=== PATIENT | female | born 1965 | race Caucasian/White ===

== ENCOUNTER 2017-01-31 19:34 | Emergency (ER) | payer BC ==
[2017-01-31 20:02] VITALS: BP 123/73
[2017-01-31] MEDS ORDERED: Azithromycin TAB* 250 MG PO ONE (20:12)
[2017-01-31] MEDS ORDERED: Benzonatate CAP* 100 MG PO ONE (20:12)
--- NOTE | 2017-01-31 20:57 | UC ---
Throat Pain/Nasal Howard HPI - HPI Summary HPI Summary: FIVE DAYS FO CONGESTION, LAST NIGHT HIGH PITCHED COUGH, SHORTNESS OF BREATH. NO FEVER. - History of Current Complaint Chief Complaint: UCRespiratory Stated Complaint: COUGH Time Seen by Provider: 01/31/17 19:51 Hx Obtained From: Patient Hx Last Menstrual Period: 11 yrs Onset/Duration: Gradual Onset, Lasting Weeks, Still Present Severity: Moderate Pain Intensity: 0 Pain Scale Used: 0-10 Numeric Cough: Productive Associated Signs & Symptoms: Positive: Sinus Discomfort, Nasal Discharge - Epiglottits Risk Factors Epiglottis Risk Factors: Negative - Allergies/Home Medications Allergies/Adverse Reactions: Allergies Allergy/AdvReac Type Severity Reaction Status Date / Time Clindamycin Allergy Rash Verified 01/31/17 19:52 Home Medications: Home Medications buPROPion TAB* [Wellbutrin TAB*] 100 mg PO DAILY 01/31/17 [History Confirmed ] PMH/Surg Hx/FS Hx/Imm Hx Previously Healthy: Yes - Surgical History Surgical History: Yes Surgery Procedure, Year, and Place: c sect x 3 - Family History Known Family History: Positive: Cardiac Disease, Diabetes, Other - BLADDER CANCER Negative: Respiratory Disease - Social History Occupation: Employed Full-time Lives: With Family Alcohol Use: Occasionally Substance Use Type: None Smoking Status (MU): Former Smoker Type: Cigarettes Have You Smoked in the Last Year: Yes When Did the Patient Quit Smoking/Using Tobacco: 6 MONTHS AGO Review of Systems Constitutional: Negative Skin: Negative Eyes: Negative ENT: Ear Ache, Nasal Discharge, Sinus Congestion, Sinus Pain/Tenderness Respiratory: Cough Cardiovascular: Negative Gastrointestinal: Negative Genitourinary: Negative Motor: Negative Neurovascular: Negative Musculoskeletal: Negative Neurological: Negative Psychological: Negative All Other Systems Reviewed And Are Negative: Yes Physical Exam Triage Information Reviewed: Yes Appearance: Well-Appearing, No Pain Distress, Well-Nourished Vital Signs: Initial Vital Signs Temp 98.1 F 01/31/17 19:54 Pulse 97 01/31/17 19:54 Resp 28 01/31/17 19:54 BP 123/73 01/31/17 19:54 Pulse Ox 100 01/31/17 19:54 Vital Signs Reviewed: Yes Eye Exam: Normal ENT: Positive: Pharynx normal, Nasal congestion, TM bulging, TM dull Dental Exam: Normal Neck exam: Normal Neck: Positive: Supple, Nontender, No Lymphadenopathy Respiratory Exam: Other - COUGH Respiratory: Positive: Chest non-tender, Lungs clear, Normal breath sounds, No respiratory distress, No accessory muscle use Cardiovascular Exam: Normal Cardiovascular: Positive: RRR, No Murmur, Pulses Normal Abdominal Exam: Normal Musculoskeletal Exam: Normal Musculoskeletal: Positive: Strength Intact Neurological Exam: Normal Psychological Exam: Normal Skin Exam: Normal Throat Pain/Nasal Course/Dx - Differential Dx/Diagnosis Differential Diagnosis/HQI/PQRI: Pharyngitis, Tonsillitis, URI Provider Diagnoses: SINUSITIS; BRONCHITIS Discharge - Discharge Plan Condition: Stable Disposition: HOME Prescriptions: Azithromycin TAB* [Zithromax TAB (Z-KI) 250 mg #6 tabs] 250 mg PO DAILY #4 tab Benzonatate CAP* [Tessalon 100 MG CAP*] 100 mg PO TID PRN #15 cap PRN Reason: Cough Patient Education Materials: Sinusitis (ED), Upper Respiratory Infection (ED) Referrals: Karen STEVENS,Pelon Bishop [Primary Care Provider] -
== END 2017-01-31 20:28 | disposition home or self-care (01) ==
LOC: UCCORT 19:34
DX: J32.9 Chronic sinusitis, unspecified (principal); J40 Bronchitis, not specified as acute or chronic; Z87.891 Personal history of nicotine dependence
CPT/HCPCS: 99212; A9270-GY; G0463

== ENCOUNTER 2017-08-06 18:26 | Emergency (ER) | payer BC ==
[2017-08-06 20:39] VITALS: BP 134/72
--- NOTE | 2017-08-06 20:57 | ED ---
Respiratory - HPI Summary HPI Summary: 52 yr old with myalgias, cough, chills, nasal congestion. Onset yesterday. 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 Her daughter has symptoms as well a couple of days before. No other complaints. - History of Current Complaint Chief Complaint: UCGeneralIllness Stated Complaint: FLU SYMPTOMS Time Seen by Provider: 08/06/17 20:44 Pain Intensity: 0 - Allergy/Home Medications Allergies/Adverse Reactions: Allergies Allergy/AdvReac Type Severity Reaction Status Date / Time Clindamycin Allergy Rash Verified 08/06/17 20:39 PMH/Surg Hx/FS Hx/Imm Hx - Surgical History Surgery Procedure, Year, and Place: c sect x 3 Infectious Disease History: No Infectious Disease History: Denies: Traveled Outside the [place] in Last 30 Days - Family History Known Family History: Positive: Cardiac Disease, Diabetes, Other - BLADDER CANCER Negative: Respiratory Disease - Social History Occupation: Employed Full-time Lives: With Family Alcohol Use: Rare Substance Use Type: Reports: None Smoking Status (MU): Former Smoker Type: Cigarettes Have You Smoked in the Last Year: Yes Review of Systems Positive: Chills, Fatigue Positive: Sore Throat, Nasal Discharge Positive: Cough All Other Systems Reviewed And Are Negative: Yes Physical Exam Triage Information Reviewed: Yes Vital Signs On Initial Exam: Initial Vitals Temp Pulse Resp BP Pulse Ox 98.6 F 113 24 134/72 100 08/06/17 20:35 08/06/17 20:35 08/06/17 20:35 08/06/17 20:35 08/06/17 20:35 Vital Signs Reviewed: Yes Appearance: Positive: Well-Appearing, No Pain Distress Skin: Positive: Warm, Skin Color Reflects Adequate Perfusion Head/Face: Positive: Normal Head/Face Inspection Eyes: Positive: EOMI ENT: Positive: Pharynx normal, Nasal congestion, Nasal drainage, TMs normal Neck: Positive: Nontender Respiratory/Lung Sounds: Positive: Clear to Auscultation, Breath Sounds Present Cardiovascular: Positive: RRR. Negative: Murmur Abdomen Description: Positive: Nontender Musculoskeletal: Positive: Strength/ROM Intact Neurological: Positive: Sensory/Motor Intact, Alert, Oriented to Person Place, Time, CN Intact II-III Psychiatric: Positive: Normal AVPU Assessment: Alert - Gayle Coma Scale Best Eye Response: 4 - Spontaneous Best Motor Response: 6 - Obeys Commands Best Verbal Response: 5 - Oriented Coma Scale Total: 15 Diagnostics - Vital Signs Vital Signs Temp Pulse Resp BP Pulse Ox 08/06/17 20:35 98.6 F 113 24 134/72 100 - Laboratory Lab Statement: Any lab studies that have been ordered have been reviewed, and results considered in the medical decision making process. Disposition - Course Course Of Treatment: 52 yr old with influenza symptoms. DC home on tamiflu - Diagnoses Provider Diagnoses: Influenza Discharge - Discharge Plan Condition: Good Disposition: HOME Prescriptions: Oseltamivir CAP* [Tamiflu CAP*] 75 mg PO BID #10 cap Patient Education Materials: Influenza in Children (ED) Forms: *School Release Referrals: Karen STEVENS,Pelon Bishop [Primary Care Provider] - 2 Days
== END 2017-08-06 21:01 | disposition home or self-care (01) ==
LOC: UCCORT 18:26
DX: J11.1 Influenza due to unidentified influenza virus with other respiratory manifestations (principal); Z88.1 Allergy status to other antibiotic agents; Z87.891 Personal history of nicotine dependence
CPT/HCPCS: 99212; G0463

== ENCOUNTER 2019-01-11 16:43 | Emergency (ER) | payer BC ==
--- OUTSIDE RECORDS SUMMARY | 2019-01-11 17:13 | XMS REPORT | Continuity of Care Document ---
:1965 External Reference #:[id number] Author Name Ayana Pascual PA Address [address] 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 Pelon Jones MD Primary Care Physician Unavailable Payers Date Identification Numbers Payment Provider Subscriber Policy Number: [id number] Enmanuel Jackson PayID: [id number] [address] [address] [place] [address] Problems Active Problems Provider Date Closed fracture of base of thumb Ayana Pascual PA Onset: 01/01/2019 Sprain of metacarpophalangeal joint Ayana Pascual PA Onset: 01/01/2019 Family History Date Family Member(s) Observation Comments Father Diabetes Father Heart Disease Social History Type Date Description Comments Sex Unknown Lives With Daughter 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 Working Hand Dominance Right-handed Tobacco Use Start: Unknown Current Cigarette Smoker 1 Pack Daily ETOH Use Rarely consumes alcohol Recreational Drug Use Denies Drug Use Tobacco Use Start: Unknown Heavy tobacco smoker (more than 10 cigarettes/day) Smoking Status Reviewed: 12/31/18 Heavy tobacco smoker (more than 10 cigarettes/day) Allergies, Adverse Reactions, Alerts Description No Known Drug Allergies Medications Description No Active Medications Vital Signs Date Vital Result Comment 01/01/2019 9:40am BP Systolic 130 mmHg BP Diastolic 84 mmHg Body Temperature 98.0 F Heart Rate 97 /min Height 61.5 inches 5'1.50" Weight 196.00 lb BMI (Body Mass Index) 36.4 kg/m2 BSA (Body Surface Area) 1.88 m2 [place] body weight in kilograms 49 kg O2 % BldC Oximetry 97 % Results Test Date Facility Test Result H/L Range Note Culture Routine W/ 09/09/2013 [facility] Gram Stain See Note 1 Gram Stain [address] [place] [address] [phone] Aerobic Culture See Note 2 1 GRAM STAIN ! FEW WHITE BLOOD CELLS ! VERY FEW GRAM POSITIVE COCCI 2 NO GROWTH: FINAL REPORT Procedures Date Code Description Status 01/01/2019 66230 Radiology, Finger(S), Two Views Completed 01/01/2019 87115 Fracture-closed finger or thumb Completed Encounters Type Date Location Provider Dx Diagnosis Office Visit 01/01/2019 [facility] Ayana Pascual, M25.542 Pain in joints of 9:30a PA left hand S63.642A Sprain of metacarpophalangeal joint of left thumb, init S62.512A Disp fx of proximal phalanx of left thumb, init for clos fx Office Visit 09/06/2013 10:34a Rony Perez, 682.6 Cellulitis & [facility] M.D. Abscess Leg Center Except Foot 311 Depressive Disorder Not Elsewhere Spec Plan of Treatment Future Appointment(s):01/22/2019 8:30 am - Ayana Pascual PA at [facility]/01/2019 - Ayana Pascual, PAM25.542 Pain in joints of left handS63.642A Sprain of metacarpophalangeal joint of left thumb, initial encounterComments:I have explained the nature of this injury and that with the placement of this fracture most likely she has partially torn the ulnar collateral ligament as well. I have recommended casting as I think it is going to give her the most support and she will be the most compliant with it. I recommended atotal of 6 weeks of a thumb spica cast. I do not recommend a removable brace as I do not think it will give her enough stability or she will be compliant. She will return to the office for recheck and change of the cast in 3 weeks.S62.512A Displaced fracture of proximal phalanx of left thumb, initial encounter for closed fractureAllNew Medication:No Active Medications -
[2019-01-11 17:18] VITALS: BP 117/69
--- NOTE | 2019-01-11 17:34 | UC ---
Respiratory Complaint HPI - HPI Summary HPI Summary: Deep cough x3 days that came on suddenly. Pt feels it is deep and occasional wheezing. Was rx'd an inhaler a few months ago, not using. Feels feverish. dec.r appetite. worse at night. smoker:former, quit 1 wk ago. sick contacts:none up to date with vaccines:up to date - History of Current Complaint Chief Complaint: UCGeneralIllness Stated Complaint: COUGH Time Seen by Provider: 01/11/19 17:15 Hx Obtained From: Patient Hx Last Menstrual Period: 11 yrs Onset/Duration: Sudden Onset Pain Intensity: 0 Pain Scale Used: 0-10 Numeric Aggravating Factors: Deep Breaths, Recumbent Position Alleviating Factors: Nothing Associated Signs And Symptoms: Positive: Fever, URI, Nasal Congestion. Negative : Dyspnea, Chills, Wheezing, Dizziness, Calf Pain, Calf Swelling - Allergies/Home Medications Allergies/Adverse Reactions: Allergies Allergy/AdvReac Type Severity Reaction Status Date / Time clindamycin Allergy Rash Verified 01/11/19 17:18 PMH/Surg Hx/FS Hx/Imm Hx Previously Healthy: Yes Endocrine History: Other - obesity - Surgical History Surgical History: Yes Surgery Procedure, Year, and Place: c sect x 3 - Family History Known Family History: Positive: Cardiac Disease, Diabetes, Other - BLADDER CANCER Negative: Respiratory Disease - Social History Alcohol Use: Rare Substance Use Type: None Smoking Status (MU): Former Smoker Type: Cigarettes Have You Smoked in the Last Year: Yes When Did the Patient Quit Smoking/Using Tobacco: 6 MONTHS AGO Review of Systems All Other Systems Reviewed And Are Negative: Yes Constitutional: Negative: Fever, Chills, Fatigue Skin: Negative: Rash Respiratory: Positive: Shortness Of Breath, Cough Cardiovascular: Positive: Negative Musculoskeletal: Negative: Edema, Myalgia Neurological: Negative: Headache, Weakness Physical Exam Triage Information Reviewed: Yes Appearance: Well-Appearing Vital Signs: Initial Vital Signs Temp 97.8 F 01/11/19 17:13 Pulse 106 01/11/19 17:13 Resp 18 01/11/19 17:13 BP 117/69 01/11/19 17:13 Pulse Ox 99 01/11/19 17:13 Vital Signs Reviewed: Yes Eyes: Positive: Conjunctiva Clear ENT: Positive: Pharynx normal, Nasal congestion, TMs normal, Uvula midline. Negative: Muffled voice, Sinus tenderness Neck: Positive: Supple, Nontender, No Lymphadenopathy Respiratory: Positive: No accessory muscle use, Crackles - L base. Negative: Decreased breath sounds, Rhonchi, Stridor Cardiovascular Exam: Normal Neurological: Positive: Alert Respiratory Course/Dx - Course Course Of Treatment: Sudden deep cough, subj. fever. on exam rales. Afebrile today w/ good vitals. Will give her an inhaler since she is also a smoker even though she quite a week ago. Will also tx what seems like lower respiratory infection given lung sounds. aware of QT prolongation w/ fluconazole and zpack but she will take fluconazole if she has symptoms. - Differential Dx/Diagnosis Differential Diagnosis/HQI/PQRI: Asthma, Bronchitis, Lower Resp Infection Provider Diagnosis: Lower respiratory infection Discharge - Sign-Out/Discharge Documenting (check all that apply): Patient Departure All imaging exams completed and their final reports reviewed: No Studies - Discharge Plan Condition: Good Disposition: HOME Prescriptions: Albuterol HFA INHALER* [Ventolin HFA Inhaler*] 2 puff INH Q4H PRN #1 mdi PRN Reason: Cough Azithromycin TAB* [Zithromax TAB (Z-KI) 250 mg #6 tabs] 2 tab PO .TODAY, THEN 1 DAILY #1 ki Fluconazole 150 MG TAB* [Diflucan 150 MG TAB*] 150 mg PO ONCE 1 Days #1 tablet Patient Education Materials: Community Acquired Pneumonia (ED) Referrals: Karen STEVENS,Pelon Bishop [Primary Care Provider] - Additional Instructions: I do think you have the early signs of pneumonia given the abnormal lungs sounds I heard. Please only take fluconazole if you have symptoms. - Billing Disposition and Condition Condition: GOOD Disposition: Home
== END 2019-01-11 17:40 | disposition home or self-care (01) ==
LOC: UCCORT 16:43
DX: J06.9 Acute upper respiratory infection, unspecified (principal); Z87.891 Personal history of nicotine dependence
CPT/HCPCS: 99212; G0463

== ENCOUNTER 2019-08-12 15:48 | Emergency (ER) | payer BC ==
--- OUTSIDE RECORDS SUMMARY | 2019-08-12 17:19 | XMS REPORT | Continuity of Care Document ---
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 Problems Description No Information Available Social History Type Date Description Comments Sex Unknown ETOH Use 06/20/2019 Rarely consumes alcohol Tobacco Use Reviewed: 06/20/19 Patient is a current smoker, smokes every day Tobacco Use Reviewed: 06/20/19 Heavy tobacco smoker (more than 10 cigarettes/day) Smoking Status Reviewed: 06/20/19 Heavy tobacco smoker (more than 10 cigarettes/day) Tattoo/Piercing 06/20/2019 Negative For Tattoo Tattoo/Piercing 06/20/2019 Pierced ears Allergies, Adverse Reactions, Alerts Description No Information Available Medications Active Medications SIG Qnty Indications Ordering Provider Date Suprep Bowel Prep Kit take as directed 1units Z12.11 Kala Sim NP 17.5-3.13-1.6GM/177ML Solution Vitamin D3 2 by mouth every Unknown 25mcg (1000 day( gummies) Ut) Capsules History Medications No Active Medications Unknown 06/20/2019 - 06/20/2019 Immunizations Description No Information Available Vital Signs Date Vital Result Comment 06/20/2019 2:13pm BP Systolic 122 mmHg BP Diastolic 80 mmHg Heart Rate 95 /min Height 61 inches 5'1" Weight 199.00 lb BMI (Body Mass Index) 37.6 kg/m2 Body Temperature 96.9 F Results Description No Information Available Procedures Date Code Description Status 06/20/2019 62651695 Colonoscopy Completed Medical Devices Description No Information Available Encounters Type Date Location Provider Dx Diagnosis Office Visit 06/20/2019 [facility] Kala Sim NP Z12.11 Encounter for 2:00p Center screening for malignant neoplasm of colon R19.4 Change in bowel habit R19.5 Other fecal abnormalities Assessments Date Code Description Provider 06/20/2019 Z12.11 Screening for malignant neoplasm of colon Kala Sim NP 06/20/2019 R19.4 Altered bowel function Kala Sim NP 06/20/2019 R19.5 Fecal occult blood: trace Kala Sim NP Plan of Treatment Future Appointment(s):08/22/2019 10:00 am - Porter Kidd MD at [facility]08/21/2018 - Kala Sim NPZ12.11 Encounter for screening for malignant neoplasm of puvlqD03.4 Change in bowel fzlcbN35.5 Other fecal abnormalitiesNew Medication:Suprep Bowel Prep Kit 17.5-3.13-1.6 GM/177ML Functional Status Description No Information Available Mental Status Description No Information Available Referrals Description No Information Available
[2019-08-12 17:30] VITALS: BP 129/72
--- NOTE | 2019-08-12 17:56 | UC ---
Ear Complaint HPI - HPI Summary HPI Summary: 54 yo woman with 3 day hx of left ear pain without fever, sore throat, headache. She did have mild dizziness last week. uses Qtips. No fever or chills. Does have dental concerns, but no cold sensitivity on that side. - History of Current Complaint Chief Complaint: UCEar Stated Complaint: EAR PAIN Time Seen by Provider: 08/12/19 17:49 Hx Obtained From: Patient Hx Last Menstrual Period: 11 yrs Onset/Duration: Gradual Onset, Lasting Days - 3 Severity Initially: Moderate Severity Currently: Mild Pain Intensity: 2 Aggravating Factors: Cold Alleviating Factors: OTC Meds Associated Signs/Symptoms: Positive: Trauma to Ear - uses qtips but does not recall an injury. - Allergies/Home Medications Allergies/Adverse Reactions: Allergies Allergy/AdvReac Type Severity Reaction Status Date / Time clindamycin Allergy Rash Verified 01/11/19 17:18 codeine Allergy See Comment Verified 08/12/19 17:26 Home Medications: Home Medications Ibuprofen TAB* [Advil TAB*] 2 tab PO ONCE 08/12/19 [History Confirmed 08/12/19] PMH/Surg Hx/FS Hx/Imm Hx Previously Healthy: Yes - Surgical History Surgical History: Yes Surgery Procedure, Year, and Place: c sect x 3 - Family History Known Family History: Positive: Cardiac Disease, Diabetes, Other - BLADDER CANCER Negative: Respiratory Disease - Social History Occupation: Employed Full-time Lives: With Family Alcohol Use: Rare Substance Use Type: None Smoking Status (MU): Former Smoker Type: Cigarettes Have You Smoked in the Last Year: Yes When Did the Patient Quit Smoking/Using Tobacco: 2017 Review of Systems All Other Systems Reviewed And Are Negative: Yes Constitutional: Positive: Fatigue - works 2 jobs Skin: Positive: Negative Eyes: Positive: Negative ENT: Positive: Ear Ache. Negative: Sore Throat, Nasal Discharge Respiratory: Positive: Negative Cardiovascular: Positive: Negative Gastrointestinal: Positive: Negative Genitourinary: Positive: Negative Motor: Positive: Negative Neurovascular: Positive: Negative Musculoskeletal: Positive: Negative Neurological: Positive: Negative. Negative: Headache Psychological: Positive: Negative Is Patient Immunocompromised?: No Physical Exam Triage Information Reviewed: Yes Appearance: Well-Appearing, No Pain Distress Vital Signs: Initial Vital Signs Temp 98.2 F 08/12/19 17:27 Pulse 96 08/12/19 17:27 Resp 16 08/12/19 17:27 BP 129/72 08/12/19 17:27 Pulse Ox 98 08/12/19 17:27 ENT: Positive: Pharynx normal, TM dull, TM red - left TM dull and erythematous, mild bulging. Dental Exam: Other - no percussion tenderness at #15, her only remaining upper molar. No abscess. Neck: Positive: Supple, Nontender, Enlarged Nodes @ - mildly tender left upper right cervical node. Respiratory: Positive: Lungs clear, Normal breath sounds Cardiovascular: Positive: RRR, No Murmur Musculoskeletal Exam: Normal Neurological Exam: Normal Psychological Exam: Normal Skin Exam: Normal Ear Complaint Course/Dx - Course Course Of Treatment: amoxicillin for otitis media. - Differential Dx/Diagnosis Differential Diagnosis/HQI/PQRI: Cerumen Impaction, Otitis Externa, Otitis Media Provider Diagnosis: Left otitis media Discharge ED - Sign-Out/Discharge Documenting (check all that apply): Patient Departure All imaging exams completed and their final reports reviewed: No Studies - Discharge Plan Condition: Stable Disposition: HOME Prescriptions: Amoxicillin PO (*) [Amoxicillin 875 MG (*)] 875 mg PO BID #14 tab Patient Education Materials: Ear Infection (ED) Referrals: Karen STEVENS,Pelon Bishop [Primary Care Provider] - Additional Instructions: Please take the full course of antibiotics. Use ibuprofen as needed for control of pain. - Billing Disposition and Condition Condition: STABLE Disposition: Home
== END 2019-08-12 18:12 | disposition home or self-care (01) ==
LOC: UCCORT 15:48
DX: H66.92 Otitis media, unspecified, left ear (principal); Z87.891 Personal history of nicotine dependence; Z88.1 Allergy status to other antibiotic agents; Z88.5 Allergy status to narcotic agent
CPT/HCPCS: 99212; G0463